=== PATIENT | female | born 1985 | race Caucasian/White ===

== ENCOUNTER 2017-06-06 17:58 | Emergency (ER) | payer BC ==
[~2017-06-06] VITALS: Ht 167.6 cm; Wt 53.5 kg
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
--- NOTE | 2017-06-06 18:42 | NUR ---
URINE OBTAINED AND SENT TO LAB.
--- NOTE | 2017-06-06 19:13 | NUR ---
REPORT GIVEN TO YESSY ARIZMENDI FOR [facility].
--- NOTE | 2017-06-06 19:30 | NUR ---
PATIENT IS IN BED, AAOX4. NAD NOTED. VSS. CERVICAL COLLAR ON.
--- NOTE | 2017-06-06 21:21 | NUR ---
Patient discharged to home in stable condition. Written and verbal after care instructions given. Patient verbalizes understanding of instruction. Patient is ambulatory with steady gait. vss. nad noted. no further complaints.
[2017-06-06 21:22] VITALS: BP 98/64
== END 2017-06-06 21:22 | disposition home or self-care (01) ==
LOC: EDBD → ER 18:01
DX: R51 Headache (principal); M54.2 Cervicalgia; V43.52XA Car driver injured in collision with other type car in traffic accident, initial encounter; Y93.89 Activity, other specified; Y92.410 Unspecified street and highway as the place of occurrence of the external cause; Y99.8 Other external cause status
CPT/HCPCS: 70450; 71045; 72125; 84703; 99285; A4606; Z7610